=== PATIENT | male | born 1990 ===

== ENCOUNTER → 2018-08-12 | Outpatient (REF) | payer OTHER ==
[2018-08-13 22:29] LABS: INFLUENZA A AMPLIFICATION NEGATIVE (NEGATIVE); INFLUENZA B AMPLIFICATION NEGATIVE (NEGATIVE)
== END ==
LOC: M LAB REF 12:23
PROVIDERS: ATTEND Physician Assistant
DX: J11.1 Influenza due to unidentified influenza virus with other respiratory manifestations (principal)